=== PATIENT | male | born 1980 | race Caucasian/White ===

== ENCOUNTER 2023-03-24 19:00 | Emergency (ER) | payer SELFPAY ==
[~2023-03-24] VITALS: Ht 170.2 cm; Wt 91.0 kg
[2023-03-24 19:07] VITALS: BP 147/99; PULSE 110; RESP 19; TEMP 98; O2SAT 99
[2023-03-24] MEDS ORDERED: MAGNESIUM/ALUMINUM HYDROXIDE/SIMETHICONE 30ML UDC PO ONE (19:45)
[2023-03-24] MEDS ORDERED: ONDANSETRON 4MG ODT PO ONE (19:45)
[2023-03-24] MEDS ORDERED: FAMOTIDINE 20MG TABLET PO ONE (19:45)
[2023-03-25] MEDS ORDERED: FAMO-135 MT (01:55)
== END 2023-03-24 20:34 | disposition left against medical advice (07) ==
LOC: ER 19:00
DX: R10.9 Unspecified abdominal pain (principal); R11.2 Nausea with vomiting, unspecified; R11.10 Vomiting, unspecified
CPT/HCPCS: 99281

== ENCOUNTER 2023-03-24 23:29 | Emergency (ER) | payer SELFPAY ==
[~2023-03-24] VITALS: Ht 170.2 cm; Wt 87.0 kg
[2023-03-25 00:08] VITALS: TEMP 98.2; O2SAT 97
[2023-03-25] MEDS ORDERED: FAMOTIDINE 20MG TABLET PO ONE (00:15)
[2023-03-25] MEDS ORDERED: MAGNESIUM/ALUMINUM HYDROXIDE/SIMETHICONE 30ML UDC PO ONE (00:15)
[2023-03-25] MEDS ORDERED: ONDANSETRON 4MG ODT PO ONE (00:15)
[2023-03-25 00:31] LABS: BASOPHILS % 0.7 % (0.0-2.0); EOSINOPHILS % 1.2 % (0.0-5.0); HEMATOCRIT. 47.8 % (42.0-52.0); HEMOGLOBIN. 15.8 g/dL (14.0-18.0); LYMPHOCYTES % 19.5 % (20.0-50.0); MEAN CORPUSCULAR HEMOGLOBIN 29.1 pg (28.0-32.0); MEAN CORPUSCULAR HGB CONC 33.1 g/dL (31.0-37.0); MEAN CORPUSCULAR VOLUME 88.1 fL (80.0-94.0); MEAN PLATELET VOLUME 7.7 fl (7.4-10.4); MONOCYTES % 7.5 % (2.0-8.0); NEUTROPHILS % 71.1 % (40.0-76.0); PLATELET 337 x1000/uL (130-400); RED BLOOD CELL COUNT 5.42 mill/uL (4.7-6.1); RED CELL DISTRIBUTION WIDTH 14.7 % (11.6-14.6); WHITE BLOOD COUNT 11.4 x1000/uL (4.5-11.0)
[2023-03-25 00:38] LABS: CHLORIDE 111 mEq/L (98-107); INDEX HEMOLYSI 1 (1-3); INDEX ICTERIC 1 (1-4); INDEX LIPEMIC 1 (1-3); POTASSIUM 3.5 mEq/L (3.5-5.1); SODIUM 142 mEq/L (136-145)
[2023-03-25 00:47] LABS: ALANINE AMINOTRANSFERASE 57 IU/L (13-61); ASPARTATE AMINOTRANSFERASE 56 IU/L (15-37); BILIRUBIN TOTAL 0.5 mg/dL (0.1-1.0); CALCIUM 9.5 mg/dL (8.5-10.1); CARBON DIOXIDE 23 mEq/L (21-32); CREATININE 0.8 mg/dL (0.6-1.3); GLUCOSE 122 mg/dL (70-105); PROTEIN TOTAL 7.6 g/dL (6.0-8.3); UREA NITROGEN BLOOD 23 mg/dL (7-21)
[2023-03-25] MEDS ORDERED: FAMO-135 MT (01:55)
[2023-03-25 02:03] VITALS: BP 143/94; PULSE 83; RESP 20
== END 2023-03-25 02:05 | disposition home or self-care (01) ==
LOC: ER 23:29
DX: R10.13 Epigastric pain (principal); R11.2 Nausea with vomiting, unspecified
CPT/HCPCS: 99284; 71045; 80053; 83690; 85025; 36415; Q0162

== ENCOUNTER 2024-04-10 02:14 | Emergency (ER) | payer SELFPAY ==
[~2024-04-10] VITALS: Ht 177.8 cm; Wt 73.0 kg
[~2024-04-10 02:14] MED LIST: FAMO-135 MT
[2024-04-10 02:15] VITALS: O2SAT 97
[2024-04-10] MEDS: HALOPERIDOL LACTATE 5MG/ML VIAL IM STA (02:19)
[2024-04-10] MEDS: SODIUM CHLORIDE 0.9% 1,000 ML IV ONE (02:30)
[2024-04-10] MEDS: LORAZEPAM 2MG/ML INJ IM ONE (02:30)
[2024-04-10 03:07] LABS: BASOPHILS % 0.5 % (0.0-2.0); EOSINOPHILS % 0.7 % (0.0-5.0); HEMATOCRIT. 51.1 % (42.0-52.0); HEMOGLOBIN. 16.8 g/dL (14.0-18.0); LYMPHOCYTES % 12.2 % (20.0-50.0); MEAN CORPUSCULAR HGB CONC 32.9 g/dL (31.0-37.0); MEAN CORPUSCULAR VOLUME 91.2 fL (80.0-94.0); MEAN PLATELET VOLUME 7.9 fl (7.4-10.4); MONOCYTES % 4.7 % (2.0-8.0); NEUTROPHILS % 81.9 % (40.0-76.0); PLATELET 371 x1000/uL (130-400); RED CELL DISTRIBUTION WIDTH 14.7 % (11.6-14.6); WHITE BLOOD COUNT 12.9 x1000/uL (4.5-11.0)
[2024-04-10 03:17] LABS: CARBON DIOXIDE 22 mEq/L (21-32); CHLORIDE 106 mEq/L (98-107); POTASSIUM 3.7 mEq/L (3.5-5.1); SODIUM 140 mEq/L (136-145)
[2024-04-10 03:18] LABS: CALCIUM 9.8 mg/dL (8.7-10.4)
[2024-04-10 03:22] LABS: CREATININE 1.4 mg/dL (0.6-1.3)
[2024-04-10 03:23] LABS: GLUCOSE 173 mg/dL (70-105); TROPONIN I HIGH SENSITIVITY 5 ng/L (3.0-53); UREA NITROGEN BLOOD 13 mg/dL (9-23)
[2024-04-10 03:24] LABS: ACETAMINOPHEN < 2 ug/mL (10-30); ALANINE AMINOTRANSFERASE 27 IU/L (10-49); ALBUMIN 4.8 g/dL (3.2-4.8); ASPARTATE AMINOTRANSFERASE 28 IU/L (<34)
[2024-04-10 03:25] LABS: BILIRUBIN DIRECT 0.1 mg/dL (<=3.0); BILIRUBIN TOTAL 0.3 mg/dL (0.1-1.0); PROTEIN TOTAL 7.4 g/dL (6.0-8.3)
[2024-04-10 03:58] LABS: ETHANOL BLOOD < 10 mg/dL (<10)
[2024-04-10] MEDS: DIPHENHYDRAMINE 50MG/ML VIAL IM PRN (04:35)
[2024-04-10 23:50] LABS: CLARITY URINE CLOUDY (CLEAR); COLOR URINE YELLOW (YELLOW); GLUCOSE URINE NEGATIVE (NEGATIVE); KETONES URINE NEGATIVE (NEGATIVE); LEUKOCYTE ESTERASE URINE TRACE (NEGATIVE); NITRITE URINE NEGATIVE (NEGATIVE); OCCULT BLOOD URINE NEGATIVE (NEGATIVE); PROTEIN URINE TRACE (NEGATIVE); SPECIFIC GRAVITY URINE 1.016 (1.005-1.030)
[2024-04-10 23:58] LABS: *AMPHETAMINES SCREEN URINE PRESUMPTIVE POSITIVE (NEGATIVE); *BARBITURATES SCREEN URINE NEGATIVE (NEGATIVE); *BENZODIAZEPINES SCREEN URINE NEGATIVE (NEGATIVE); *COCAINE SCREEN URINE NEGATIVE (NEGATIVE); CANNABINOID URINE SCREEN NEGATIVE (NEGATIVE); ECSTASY MDMA SCREEN URINE CONF.TEST INDICATED (NEGATIVE); METHADONE URINE SCREEN NEGATIVE (NEGATIVE); OPIATES URINE SCREEN NEGATIVE (NEGATIVE); PHENCYCLIDINE URINE SCREEN NEGATIVE (NEGATIVE)
[2024-04-11 00:55] LABS: BACTERIA URINE 1+; RBC URINE NONE SEEN /hpf (0-2); SQUAMOUS EPITHELIAL CELL URINE FEW /lpf (RARE/1+); WBC URINE 0-2 /hpf (0-2)
[2024-04-11 09:46] VITALS: BP 120/62; PULSE 69; RESP 17; TEMP 37.16964; O2SAT 97
== END 2024-04-11 09:59 | disposition home or self-care (01) ==
LOC: ER 02:14
DX: R45.851 Suicidal ideations (principal); I49.9 Cardiac arrhythmia, unspecified; Z20.822 Contact with and (suspected) exposure to COVID-19; Z98.890 Other specified postprocedural states
CPT/HCPCS: 80076; 80305; 80048; 81003; 80307; 80329; 80320; 83690; 85025; 84484; 36415; 93005; 96360; 96361; 96372; 99285; 87426; J1200; J1630; J2060; J7030; G0480

== ENCOUNTER 2024-04-23 22:37 | Emergency (ER) | payer SELFPAY ==
[~2024-04-23] VITALS: Ht 170.2 cm; Wt 73.0 kg
[2024-04-23 22:51] VITALS: O2SAT 98
[2024-04-24 01:20] LABS: *AMPHETAMINES SCREEN URINE PRESUMPTIVE POSITIVE (NEGATIVE); *BENZODIAZEPINES SCREEN URINE NEGATIVE (NEGATIVE)
[2024-04-24 01:21] LABS: *BARBITURATES SCREEN URINE NEGATIVE (NEGATIVE); *COCAINE SCREEN URINE NEGATIVE (NEGATIVE); CANNABINOID URINE SCREEN NEGATIVE (NEGATIVE); ECSTASY MDMA SCREEN URINE CONF.TEST INDICATED (NEGATIVE); METHADONE URINE SCREEN NEGATIVE (NEGATIVE); OPIATES URINE SCREEN NEGATIVE (NEGATIVE); PHENCYCLIDINE URINE SCREEN NEGATIVE (NEGATIVE)
[2024-04-24 01:27] LABS: CLARITY URINE CLEAR (CLEAR); COLOR URINE YELLOW (YELLOW); GLUCOSE URINE NEGATIVE (NEGATIVE); KETONES URINE NEGATIVE (NEGATIVE); LEUKOCYTE ESTERASE URINE NEGATIVE (NEGATIVE); NITRITE URINE NEGATIVE (NEGATIVE); OCCULT BLOOD URINE NEGATIVE (NEGATIVE); PH URINE 5.5 (4.5-8.0); PROTEIN URINE TRACE (NEGATIVE); SPECIFIC GRAVITY URINE 1.038 (1.005-1.030); UROBILINOGEN URINE 0.2 E.U./dL (0.2-1.0)
[2024-04-24 01:33] LABS: CARBON DIOXIDE 29 mEq/L (21-32); CHLORIDE 104 mEq/L (98-107); POTASSIUM 4.1 mEq/L (3.5-5.1); SODIUM 137 mEq/L (136-145)
[2024-04-24 01:34] LABS: CALCIUM 10.3 mg/dL (8.7-10.4)
[2024-04-24 01:39] LABS: GLUCOSE 102 mg/dL (70-105); UREA NITROGEN BLOOD 21 mg/dL (9-23)
[2024-04-24 01:42] LABS: EOSINOPHILS % 1.6 % (0.0-5.0); HEMOGLOBIN. 16.8 g/dL (14.0-18.0); LYMPHOCYTES % 20.8 % (20.0-50.0); MEAN CORPUSCULAR HEMOGLOBIN 29.9 pg (28.0-32.0); MEAN CORPUSCULAR VOLUME 90.6 fL (80.0-94.0); MEAN PLATELET VOLUME 8.1 fl (7.4-10.4); MONOCYTES % 6.8 % (2.0-8.0); NEUTROPHILS % 69.8 % (40.0-76.0); PLATELET 393 x1000/uL (130-400); RED BLOOD CELL COUNT 5.62 mill/uL (4.7-6.1); RED CELL DISTRIBUTION WIDTH 14.7 % (11.6-14.6); WHITE BLOOD COUNT 10.6 x1000/uL (4.5-11.0)
[2024-04-24 02:11] LABS: RBC URINE NONE SEEN /hpf (0-2)
[2024-04-24 02:12] LABS: BACTERIA URINE TRACE; SQUAMOUS EPITHELIAL CELL URINE FEW /lpf (RARE/1+)
[2024-04-24 02:24] LABS: ACETAMINOPHEN < 2 ug/mL (10-30); ETHANOL BLOOD < 10 mg/dL (<10)
[2024-04-24 10:41] VITALS: BP 139/86; PULSE 70; RESP 16; TEMP 36.61404; O2SAT 100
== END 2024-04-24 11:33 | disposition home or self-care (01) ==
LOC: ER 22:37
DX: R44.1 Visual hallucinations (principal); R44.0 Auditory hallucinations; J45.909 Unspecified asthma, uncomplicated
CPT/HCPCS: 36415; 80048; 80305; 80307; 80320; 80329; 81003; 85025; 99283; 99284; G0480

== ENCOUNTER 2024-04-24 11:03 | Emergency (ER) | payer SELFPAY ==
[~2024-04-24] VITALS: Ht 167.6 cm; Wt 73.0 kg
[2024-04-24 11:11] VITALS: BP 158/94; PULSE 79; RESP 16; O2SAT 99
[2024-04-24 11:13] VITALS: O2SAT 99
[2024-04-24 13:17] VITALS: TEMP 98.6
[2024-04-24] MEDS: ACETAMINOPHEN 325MG TABLET PO ONE (13:17)
== END 2024-04-24 13:25 | disposition home or self-care (01) ==
LOC: ER 11:20
DX: F15.10 Other stimulant abuse, uncomplicated (principal); J45.909 Unspecified asthma, uncomplicated; Z86.59 Personal history of other mental and behavioral disorders
CPT/HCPCS: 99282